=== PATIENT | male | born 1950 | race Caucasian/White ===

== ENCOUNTER 2025-04-14 12:30 | Day surgery (SDC) | payer OTHER ==
[2025-04-10 09:43] LABS: Absolute Lymphocytes (CBC) 0.9 K/uL (0.7-4.9); Hematocrit 27.5 % (39.6-49.0); Hemoglobin 9.3 g/dL (13.6-17.9); MCH 29.2 pg (27.0-35.0); MCHC 33.8 g/dL (32.0-36.0); MCV 86.5 fL (80-100); MPV 7.9 fL (7.6-11.3); Nucleated RBC Absolute Count 0.0 (0-0); Nucleated Red Blood Cells % 0.1 % (0-0); RBC Red Blood Cell Count 3.18 M/uL (4.33-5.43); White Blood Count 3.20 thou/uL (4.3-10.9)
--- NOTE | 2025-04-10 09:57 | RAD REPORT ---
EXAM: Chest Pa And Lat (2 Views) HISTORY: 74 years Male PRE OP COMPARISON: No prior exams FINDINGS: LUNGS/PLEURA: The lungs are clear. No pleural effusions or pneumothorax. No pulmonary edema. CARDIAC/MEDIASTINUM: The cardiac silhouette is within normal limits. UPPER ABDOMEN: No significant abnormality. BONES: No acute abnormality. LINES/TUBES/OTHER: N/A IMPRESSION: No evidence of acute cardiopulmonary disease.
[2025-04-10 09:58] LABS: Anion Gap 7.4 mEq/L (5.0-15.0); BUN Blood Urea Nitrogen 19.0 mg/dL (7-18); Glucose Level 114.0 mg/dL (74-106); Potassium 4.4 mEq/L (3.5-5.1)
[2025-04-10 10:39] LABS: PT Prothrombin Time 13.3 SECONDS (10-13.0); PTT, Activated Partial Thromb 30.8 SECONDS (27.2-37.4); Protime INR 1.18
[2025-04-14] MEDS ORDERED: NA CHLORIDE 0.9% 500 ML ONE (12:35)
[2025-04-14] MEDS ORDERED: FENTANYL CITR 100 MCG/2 ML ONE (14:05)
[2025-04-14] MEDS ORDERED: MIDAZOLAM HCL 2 MG/2 ML INJ ONE (14:05)
[2025-04-14] MEDS ORDERED: HEPA 1000U/500MLS 2,000 UNIT/1,000 ML BAG IV ONE (14:16)
[2025-04-14] MEDS ORDERED: LIDOCAINE 1% 20 ML MDV ONE (14:16)
--- NOTE | 2025-04-14 16:20 | OP ---
Date of Procedure: 04/14/2025 Surgeon: SHERINE GONZALEZ Procedure Performed: Selective bilateral carotid angiogram. Indication: Carotid stenosis by Doppler. Access: Right common femoral artery 5-Bahamian, closed with Mynx closure device. Complications: None. Bleeding: Less than 50 mL. Total Sedation Time: 50 minutes. Used fentanyl and Versed. Description Of Procedure: After risks, benefits, and alternatives were explained, the patient agreed to procedure and signed informed consent. The patient was brought into cardiac catheterization labo ratory, prepped and draped in usual sterile fashion. Then, I accessed right common femoral artery us ing micropuncture kit, ultrasound guidance, fluoroscopy, and placed 5-Bahamian [place] sheath and took 4-Bahamian 3DRC catheter into the aortic root, engaged the right common carotid and took standard view s, and then left common carotid, took standard views, and then removed the catheter and the sheath an d used 5-Bahamian Mynx closure device for closure with good hemostasis. Findings: 1. Right common carotid is normal. Right internal carotid; there is about 60% stenosis on a bend are a. 2. Left common carotid is normal. Left internal carotid has 30% to 40% stenosis. Conclusion: Moderate carotid artery stenosis. Recommendation: Medical management. Repeat Doppler in a year. SR/MODL Voice ID: [id number] Report ID: [id number]
[2025-04-14 17:19] VITALS: BP 153/65
[2025-04-14 17:21] VITALS: O2SAT 98
== END 2025-04-14 17:20 | disposition home or self-care (01) ==
LOC: PRE 12:30 → CCL 17:20
PROVIDERS: ATTEND Internal Medicine
DX: I65.23 Occlusion and stenosis of bilateral carotid arteries (principal); R55 Syncope and collapse; I10 Essential (primary) hypertension; E78.5 Hyperlipidemia, unspecified; Z87.891 Personal history of nicotine dependence; Z79.82 Long term (current) use of aspirin; Z79.899 Other long term (current) drug therapy; Z88.1 Allergy status to other antibiotic agents
CPT/HCPCS: 93005; 85025; 80048; 36415; 85610; 85730; 71046; 36222; 76937; C1893; J2003; J2250; J3010; J1644; J7040; C1760; 99152